=== PATIENT | female | born 1965 | race Asian ===

== ENCOUNTER → 2017-06-13 | Outpatient (CLI) | payer BC | END | disposition home or self-care (01) | LOC: CFH 10:02 | PROVIDERS: ATTEND Family Medicine | DX: Z12.31 Encounter for screening mammogram for malignant neoplasm of breast (principal) | CPT/HCPCS: 77063; G0202 ==

== ENCOUNTER → 2018-06-13 | Outpatient (CLI) | payer BC | END | disposition home or self-care (01) | LOC: CFH 09:25 | PROVIDERS: ATTEND Family Medicine | DX: Z12.31 Encounter for screening mammogram for malignant neoplasm of breast (principal) | CPT/HCPCS: 77063; 77067 ==

== ENCOUNTER → 2019-06-29 | Outpatient (CLI) | payer BC | END | disposition home or self-care (01) | LOC: CFH 08:25 | PROVIDERS: ATTEND Family Medicine | DX: Z12.31 Encounter for screening mammogram for malignant neoplasm of breast (principal); N64.89 Other specified disorders of breast | CPT/HCPCS: 77063; 77067 ==